=== PATIENT | female | born 1950 | race Caucasian/White ===

== ENCOUNTER 2021-03-10 15:39 | Inpatient (IN) | payer MEDICARE ==
[~2021-03-10] VITALS: Ht 162.6 cm; Wt 62.9 kg
[~2021-03-10 15:39] MED LIST: AREDS EYE PO; ASPI-556 PO; CALC-1125 PO; CHOL200013 PO; CYAN1TAB44 PO; FOLI5VIA2 PO; GLUC100019 PO; IBAN150T16 PO; IRON18TA PO; L.AC1CAP6 PO; OMEG1CAP6 PO; OMEP10CA2 PO; POTA99TA4 PO; PRAS25CA3 PO; PREG25PO MC; PREM125 PO; PROG200C11 PO; TEST75GE5; THYR15TA PO; VITA-164 PO
[2021-03-10 15:43] VITALS: BP 125/50
[2021-03-10] MEDS ORDERED: THYR15TA PO (16:33)
[2021-03-10] MEDS ORDERED: CARV12.580 PO (16:34)
[2021-03-10] MEDS ORDERED: FURO-151 PO (16:34)
[2021-03-10] MEDS ORDERED: ASPI-1197 PO (16:38)
[2021-03-10] MEDS ORDERED: ARGATROBAN 250 MG/2.5 ML VIAL 250 MG in 0.9% NACL 250ML 250 ML IV SCH (16:56)
[2021-03-10] MEDS ORDERED: ONDANSETRON 4MG INJ IVP ONE (17:00)
[2021-03-10] MEDS ORDERED: MORPHINE 4 MG SYG IV ONE (17:00)
[2021-03-10] MEDS ORDERED: DABIGATRAN 150MG CAPSULE PO SCH (17:00)
[2021-03-10] MEDS ORDERED: TRAMADOL HCL 50 MG TABLET PO PRN (17:30)
[2021-03-10 17:36] LABS: HEMATOCRIT 34.7 % (36-48); MEAN CORPUSCULAR HEMOGLOBIN 32.8 pg (27.0-33.0); MEAN CORPUSCULAR HGB CONC 32.6 g/dL (32.0-36.0); MEAN CORPUSCULAR VOLUME 100.6 fL (79-99); PLATELET COUNT (AUTO) 297 K/uL (130-400); RED BLOOD CELL COUNT(AUTO) 3.45 MIL/uL (4.00-5.50); RED CELL DISTRIBUTION WIDTH 17.2 % (11.0-15.5); WHITE BLOOD COUNT (AUTO) 16.3 K/uL (4.8-10.8)
[2021-03-10 17:49] LABS: INR 1.27 (0.85-1.15); PROTHROMBIN TIME 13.5 SEC (9.6-11.6)
[2021-03-10 17:50] LABS: PARTIAL THROMBOPLASTIN TIME 27.5 SEC (26.3-35.5)
[2021-03-10 17:51] VITALS: BP 120/70
[2021-03-10 17:55] LABS: POTASSIUM 3.5 mmol/L (3.5-5.1)
[2021-03-10 18:00] LABS: ALBUMIN 2.9 g/dL (3.5-5.0); BILIRUBIN,TOTAL 0.8 mg/dL (0.2-1.0); TOTAL PROTEIN, SERUM 6.6 g/dL (6.0-8.3)
[2021-03-10] MEDS ORDERED: KCL 20 MEQ ERTAB PO ONE (18:00)
[2021-03-10] MEDS ORDERED: FUROSEMIDE 40MG VIAL IV ONE (18:00)
[2021-03-10 18:06] LABS: BAND NEUTROPHILS % (MANUAL) 1 % (0-2); BASOPHILS % (MANUAL) 1 % (0-2); EOSINOPHILS % (MANUAL) 1 % (1-6); LYMPHOCYTES % (MANUAL) 13 % (22-44); MAN.DIFF COMMENT-IMPRESSION MANUAL DIFFERENTIAL; MONOCYTES % (MANUAL) 10 % (2-9); REACTIVE LYMPHOCYTES 2 % (0-0); SEGMENTED NEUTROPHILS % 72 % (40-70)
[2021-03-10 18:07] LABS: PLATELET MORPHOLOGY COMMENT ADEQUATE
[2021-03-10 19:49] VITALS: BP 118/81
[2021-03-10 20:20] VITALS: BP 136/79
[2021-03-10] MEDS ORDERED: ATORVASTATIN 40 MG TABLET PO SCH (21:00)
[2021-03-10] MEDS: METOPROLOL TARTRATE 25 MG TAB PO SCH (22:26)
[2021-03-10] MEDS: ASPIRIN 81 MG EC TAB PO SCH (22:26)
[2021-03-10] MEDS: GABAPENTIN 100 MG CAPSULE PO SCH (22:26)
[2021-03-10] MEDS: FUROSEMIDE 20 MG TABLET PO SCH (22:27)
[2021-03-10] MEDS: TRAMADOL HCL 50 MG TABLET PO PRN (22:30)
[2021-03-10 23:59] VITALS: BP 123/75
[2021-03-11 03:04] LABS: CREATININE 0.8 mg/dL (0.5-1.5); POTASSIUM 3.4 mmol/L (3.5-5.1)
[2021-03-11 03:16] LABS: BASOPHILS % (AUTO) 0.5 % (0.0-5.0); EOSINOPHILS % (AUTO) 2.1 % (0.0-8.0); HEMATOCRIT 30.7 % (36-48); LYMPHOCYTES % (AUTO) 14.6 % (21.0-51.0); MEAN CORPUSCULAR HEMOGLOBIN 32.8 pg (27.0-33.0); MEAN CORPUSCULAR HGB CONC 32.9 g/dL (32.0-36.0); MEAN CORPUSCULAR VOLUME 99.7 fL (79-99); MONOCYTES % (AUTO) 9.3 % (3.0-13.0); NEUTROPHILS % (AUTO) 72.3 % (40.0-77.0); PLATELET COUNT (AUTO) 296 K/uL (130-400); RED BLOOD CELL COUNT(AUTO) 3.08 MIL/uL (4.00-5.50); RED CELL DISTRIBUTION WIDTH 17.2 % (11.0-15.5); WHITE BLOOD COUNT (AUTO) 13.7 K/uL (4.8-10.8)
[2021-03-11 04:00] VITALS: BP 117/72
[2021-03-11 04:29] LABS: INR 1.26 (0.85-1.15); PROTHROMBIN TIME 13.4 SEC (9.6-11.6)
[2021-03-11 04:30] LABS: PARTIAL THROMBOPLASTIN TIME 29.7 SEC (26.3-35.5)
[2021-03-11] MEDS ORDERED: DABIGATRAN 150MG CAPSULE PO SCH ×2 (05:00→09:00)
[2021-03-11 07:43] LABS: HEMATOCRIT 31.3 % (36-48); MEAN CORPUSCULAR HEMOGLOBIN 31.6 pg (27.0-33.0); MEAN CORPUSCULAR HGB CONC 31.9 g/dL (32.0-36.0); MEAN CORPUSCULAR VOLUME 99.1 fL (79-99); RED BLOOD CELL COUNT(AUTO) 3.16 MIL/uL (4.00-5.50); RED CELL DISTRIBUTION WIDTH 17.2 % (11.0-15.5); WHITE BLOOD COUNT (AUTO) 12.7 K/uL (4.8-10.8)
[2021-03-11 08:00] VITALS: BP 120/71
[2021-03-11] MEDS ORDERED: ASPIRIN 81 MG EC TAB PO SCH (09:00)
[2021-03-11] MEDS: THYROID 15 MG PO SCH (09:00)
[2021-03-11] MEDS: ASPIRIN 81 MG EC TAB PO SCH (09:05)
[2021-03-11] MEDS: FUROSEMIDE 20 MG TABLET PO SCH ×2 (09:05→20:35)
[2021-03-11] MEDS: GABAPENTIN 100 MG CAPSULE PO SCH ×3 (09:05→20:35)
[2021-03-11] MEDS: METOPROLOL TARTRATE 25 MG TAB PO SCH ×2 (09:05→20:35)
[2021-03-11] MEDS: EZETIMIBE 10 MG TAB PO SCH (09:05)
[2021-03-11] MEDS: TRAMADOL HCL 50 MG TABLET PO PRN ×2 (09:06→20:42)
[2021-03-11 12:00] VITALS: BP 109/62
[2021-03-11 15:06] LABS: HEMATOCRIT 31.9 % (36-48); MEAN CORPUSCULAR HEMOGLOBIN 31.7 pg (27.0-33.0); MEAN CORPUSCULAR HGB CONC 31.3 g/dL (32.0-36.0); MEAN CORPUSCULAR VOLUME 101.3 fL (79-99); RED BLOOD CELL COUNT(AUTO) 3.15 MIL/uL (4.00-5.50); RED CELL DISTRIBUTION WIDTH 17.2 % (11.0-15.5); WHITE BLOOD COUNT (AUTO) 12.4 K/uL (4.8-10.8)
[2021-03-11 16:00] VITALS: BP 113/69
[2021-03-11 20:00] VITALS: BP 116/63
[2021-03-11] MEDS: KCL 20 MEQ ERTAB PO PRN (20:40)
[2021-03-11] MEDS: DABIGATRAN 150MG CAPSULE PO SCH (21:30)
[2021-03-11] MEDS: FOLIC ACID 1 MG TABLET PO SCH (21:30)
[2021-03-11] MEDS: CYANOCOBALAMIN (VITAMIN B-12) 1,000 MCG TABLET PO SCH (21:31)
[2021-03-11 23:14] LABS: MEAN CORPUSCULAR HEMOGLOBIN 32.1 pg (27.0-33.0); MEAN CORPUSCULAR HGB CONC 31.9 g/dL (32.0-36.0); MEAN CORPUSCULAR VOLUME 100.6 fL (79-99); RED BLOOD CELL COUNT(AUTO) 3.18 MIL/uL (4.00-5.50); RED CELL DISTRIBUTION WIDTH 16.8 % (11.0-15.5); WHITE BLOOD COUNT (AUTO) 14.2 K/uL (4.8-10.8)
[2021-03-11 23:36] VITALS: BP 120/72
[2021-03-12 03:39] VITALS: BP 113/63
[2021-03-12 07:26] LABS: HEMATOCRIT 33.6 % (36-48); MEAN CORPUSCULAR HGB CONC 31.3 g/dL (32.0-36.0); MEAN CORPUSCULAR VOLUME 102.4 fL (79-99); RED BLOOD CELL COUNT(AUTO) 3.28 MIL/uL (4.00-5.50); RED CELL DISTRIBUTION WIDTH 16.7 % (11.0-15.5)
[2021-03-12 07:44] LABS: ALBUMIN 2.6 g/dL (3.5-5.0); BILIRUBIN,TOTAL 0.8 mg/dL (0.2-1.0); CREATININE 0.8 mg/dL (0.5-1.5); POTASSIUM 3.9 mmol/L (3.5-5.1); TOTAL PROTEIN, SERUM 5.7 g/dL (6.0-8.3)
[2021-03-12 08:00] VITALS: BP 128/72
[2021-03-12] MEDS: METOPROLOL TARTRATE 25 MG TAB PO SCH ×3 (08:07→19:48)
[2021-03-12] MEDS: DABIGATRAN 150MG CAPSULE PO SCH ×2 (09:05→19:52)
[2021-03-12] MEDS: FUROSEMIDE 20 MG TABLET PO SCH ×2 (09:07→19:49)
[2021-03-12] MEDS: FOLIC ACID 1 MG TABLET PO SCH (09:07)
[2021-03-12] MEDS: ASPIRIN 81 MG EC TAB PO SCH (09:07)
[2021-03-12] MEDS: EZETIMIBE 10 MG TAB PO SCH (09:07)
[2021-03-12] MEDS: CYANOCOBALAMIN (VITAMIN B-12) 1,000 MCG TABLET PO SCH (09:08)
[2021-03-12] MEDS: GABAPENTIN 100 MG CAPSULE PO SCH ×3 (09:08→19:52)
[2021-03-12] MEDS: THYROID 15 MG PO SCH (09:18)
[2021-03-12 12:00] VITALS: BP 122/66
[2021-03-12 13:31] LABS: ABG BASE EXCESS 4.1 mmol/L (-2.0-3.0); ABG HCO3 28.3 mmol/L (21.0-28.0); ABG OXYGEN SATURATION 95.3 % (95.0-99.0); ABG PCO2 41 mmHg (32-45)
[2021-03-12 13:43] LABS: HEMATOCRIT 32.5 % (36-48); MEAN CORPUSCULAR HGB CONC 31.7 g/dL (32.0-36.0); MEAN CORPUSCULAR VOLUME 104.2 fL (79-99); RED BLOOD CELL COUNT(AUTO) 3.12 MIL/uL (4.00-5.50); RED CELL DISTRIBUTION WIDTH 16.8 % (11.0-15.5); WHITE BLOOD COUNT (AUTO) 13.8 K/uL (4.8-10.8)
[2021-03-12 13:50] LABS: ABG BASE EXCESS 4.3 mmol/L (-2.0-3.0); ABG HCO3 28.9 mmol/L (21.0-28.0); ABG OXYGEN SATURATION 30.3 % (95.0-99.0); ABG PCO2 44 mmHg (32-45)
[2021-03-12] MEDS: FUROSEMIDE 20MG VIAL IV SCH (13:56)
[2021-03-12 14:26] LABS: CRP QUANTITATIVE 35.2 mg/L (0.00-9.0); THYROID STIMULATING HORMONE 13.05 uIU/mL (0.36-3.74)
[2021-03-12 16:00] VITALS: BP 133/55
[2021-03-12] MEDS ORDERED: DABIGATRAN 150MG CAPSULE PO SCH (18:00)
[2021-03-12 20:00] VITALS: BP 102/57
[2021-03-12 22:45] LABS: HEMATOCRIT 32.5 % (36-48); MEAN CORPUSCULAR HEMOGLOBIN 32.1 pg (27.0-33.0); MEAN CORPUSCULAR HGB CONC 31.7 g/dL (32.0-36.0); MEAN CORPUSCULAR VOLUME 101.2 fL (79-99); RED BLOOD CELL COUNT(AUTO) 3.21 MIL/uL (4.00-5.50); RED CELL DISTRIBUTION WIDTH 16.6 % (11.0-15.5); WHITE BLOOD COUNT (AUTO) 13.8 K/uL (4.8-10.8)
[2021-03-12] MEDS: TRAMADOL HCL 50 MG TABLET PO PRN (22:45)
[2021-03-13] VITALS: BP 113/61
[2021-03-13] MEDS ORDERED: FUROSEMIDE 20MG VIAL IV ONE
[2021-03-13 04:00] VITALS: BP 107/57
[2021-03-13 04:15] LABS: CREATININE 0.7 mg/dL (0.5-1.5); MAGNESIUM 1.1 mg/dL (1.80-2.40); PHOSPHORUS 4.5 mg/dL (2.5-4.9); POTASSIUM 3.4 mmol/L (3.5-5.1)
[2021-03-13 08:00] VITALS: BP 119/76
[2021-03-13] MEDS: FOLIC ACID 1 MG TABLET PO SCH (09:27)
[2021-03-13] MEDS: CYANOCOBALAMIN (VITAMIN B-12) 1,000 MCG TABLET PO SCH (09:28)
[2021-03-13] MEDS: FUROSEMIDE 20 MG TABLET PO SCH (09:28)
[2021-03-13] MEDS: GABAPENTIN 100 MG CAPSULE PO SCH ×2 (09:28→13:33)
[2021-03-13] MEDS: EZETIMIBE 10 MG TAB PO SCH (09:28)
[2021-03-13] MEDS: ASPIRIN 81 MG EC TAB PO SCH (09:28)
[2021-03-13] MEDS: DABIGATRAN 150MG CAPSULE PO SCH (09:29)
[2021-03-13] MEDS: METOPROLOL TARTRATE 25 MG TAB PO SCH (09:30)
[2021-03-13] MEDS: FUROSEMIDE 20MG VIAL IV SCH (09:33)
[2021-03-13] MEDS: THYROID 15 MG PO SCH (09:36)
[2021-03-13 12:00] VITALS: BP 114/71
[2021-03-13] MEDS ORDERED: DABI150C PO (13:45)
[2021-03-13 15:13] LABS: ALPHA-1-ANTITRYPSIN 260 mg/dL (101-187)
[2021-03-13] MEDS: KCL 20 MEQ ERTAB PO PRN ×2 (15:36→15:37)
[2021-03-13] MEDS ORDERED: GABA100C PO (15:53)
[2021-03-19 11:12] LABS: SRA HIGH DOSE HEPARIN <1 % (0-20); SRA, LOW DOSE HEPARIN 2 % (0-20)
== END 2021-03-13 17:58 | disposition home or self-care (01) | DRG 300 ==
LOC: EDH 15:39 → EDHIP 15:40 → 4BH 20:30
PROVIDERS: ADMIT Internal Medicine Pulmonary Disease; ATTEND Internal Medicine Pulmonary Disease
DX: I75.021 Atheroembolism of right lower extremity (principal); J90 Pleural effusion, not elsewhere classified; D68.59 Other primary thrombophilia; N17.9 Acute kidney failure, unspecified; D64.9 Anemia, unspecified; Z20.822 Contact with and (suspected) exposure to COVID-19; I25.10 Atherosclerotic heart disease of native coronary artery without angina pectoris; I10 Essential (primary) hypertension; E03.9 Hypothyroidism, unspecified; D72.829 Elevated white blood cell count, unspecified; L97.519 Non-pressure chronic ulcer of other part of right foot with unspecified severity; E78.00 Pure hypercholesterolemia, unspecified; I73.9 Peripheral vascular disease, unspecified; I89.0 Lymphedema, not elsewhere classified; I25.82 Chronic total occlusion of coronary artery; Z95.1 Presence of aortocoronary bypass graft; Z85.3 Personal history of malignant neoplasm of breast; Z90.13 Acquired absence of bilateral breasts and nipples; Z79.82 Long term (current) use of aspirin; Z79.01 Long term (current) use of anticoagulants; Z79.899 Other long term (current) drug therapy; Z88.8 Allergy status to other drugs, medicaments and biological substances; Z82.5 Family history of asthma and other chronic lower respiratory diseases; Z80.8 Family history of malignant neoplasm of other organs or systems; Z82.49 Family history of ischemic heart disease and other diseases of the circulatory system
CPT/HCPCS: 36415; 36600; 71045; 71250; 76775; 80048; 80053; 82103; 82803; 83735; 83874; 84100; 84145; 84443; 85025; 85027; 85610; 85651; 85730; 86022; 86038; 86140; 86215; 86235; 86255; 86431; 87635; 93306; 93356; 93925; 93970; 93971; G0378; J0883; J1940; J2270; J2405; J7050

== ENCOUNTER → 2021-03-28 | Outpatient (CLI) | payer MEDICARE ==
[~2021-03-28] MED LIST changes: +ASPI-1197 PO; -ASPI-556 PO; +CARV12.580 PO; +DABI150C PO; +FURO-151 PO; +GABA100C PO; +HONEY 1 APPL/ML TUBE TP ONE; +LIDOCAINE HCL 4% LTA SOL 4 ML VIAL TP ONE
== END | disposition home or self-care (01) ==
LOC: WHH 08:58
PROVIDERS: ATTEND Family Medicine
DX: T81.89XA Other complications of procedures, not elsewhere classified, initial encounter (principal); S51.802A Unspecified open wound of left forearm, initial encounter; I10 Essential (primary) hypertension; I25.10 Atherosclerotic heart disease of native coronary artery without angina pectoris; E78.5 Hyperlipidemia, unspecified; E03.9 Hypothyroidism, unspecified; Z85.3 Personal history of malignant neoplasm of breast; Z98.890 Other specified postprocedural states; Z90.10 Acquired absence of unspecified breast and nipple; Z79.01 Long term (current) use of anticoagulants; Z79.899 Other long term (current) drug therapy; X58.XXXA Exposure to other specified factors, initial encounter; Y93.89 Activity, other specified; Y83.8 Other surgical procedures as the cause of abnormal reaction of the patient, or of later complication, without mention of misadventure at the time of the procedure; Y92.238 Other place in hospital as the place of occurrence of the external cause
CPT/HCPCS: 11042; A4450

== ENCOUNTER → 2021-04-11 | Outpatient (CLI) | payer MEDICARE ==
[~2021-04-11] MED LIST changes: -HONEY 1 APPL/ML TUBE TP ONE; -LIDOCAINE HCL 4% LTA SOL 4 ML VIAL TP ONE
== END | disposition home or self-care (01) ==
LOC: WHH 09:54
PROVIDERS: ATTEND Family Medicine
DX: T81.89XD Other complications of procedures, not elsewhere classified, subsequent encounter (principal); S51.802D Unspecified open wound of left forearm, subsequent encounter; I10 Essential (primary) hypertension; I25.10 Atherosclerotic heart disease of native coronary artery without angina pectoris; E78.5 Hyperlipidemia, unspecified; E03.9 Hypothyroidism, unspecified; E78.00 Pure hypercholesterolemia, unspecified; I89.0 Lymphedema, not elsewhere classified; Z79.82 Long term (current) use of aspirin; Z88.8 Allergy status to other drugs, medicaments and biological substances; Z85.3 Personal history of malignant neoplasm of breast; Z98.890 Other specified postprocedural states; Z90.10 Acquired absence of unspecified breast and nipple; Z79.01 Long term (current) use of anticoagulants; Z79.899 Other long term (current) drug therapy; X58.XXXD Exposure to other specified factors, subsequent encounter; Y83.8 Other surgical procedures as the cause of abnormal reaction of the patient, or of later complication, without mention of misadventure at the time of the procedure
CPT/HCPCS: G0463

== ENCOUNTER → 2022-10-21 | Outpatient (CLI) | payer MEDICARE ==
[~2022-10-21] MED LIST changes: -VITA-164 PO; +VITA-348 PO
== END | disposition home or self-care (01) ==
LOC: WHH 10:54
PROVIDERS: ATTEND Nurse Practitioner Family
DX: T81.89XA Other complications of procedures, not elsewhere classified, initial encounter (principal); S81.801A Unspecified open wound, right lower leg, initial encounter; S51.802A Unspecified open wound of left forearm, initial encounter; D03.71 Melanoma in situ of right lower limb, including hip; I25.10 Atherosclerotic heart disease of native coronary artery without angina pectoris; I10 Essential (primary) hypertension; E03.9 Hypothyroidism, unspecified; E78.00 Pure hypercholesterolemia, unspecified; Z85.3 Personal history of malignant neoplasm of breast; Z95.1 Presence of aortocoronary bypass graft; Z90.13 Acquired absence of bilateral breasts and nipples; Y83.8 Other surgical procedures as the cause of abnormal reaction of the patient, or of later complication, without mention of misadventure at the time of the procedure; X58.XXXA Exposure to other specified factors, initial encounter; Y93.89 Activity, other specified; Y92.238 Other place in hospital as the place of occurrence of the external cause; Y99.8 Other external cause status
CPT/HCPCS: 11042; 87070; A6248; A6209; A4450

== ENCOUNTER → 2022-11-04 | Outpatient (CLI) | payer MEDICARE ==
[~2022-11-04] MED LIST changes: +LIDOCAINE HCL 4% LTA SOL 4 ML VIAL TP ONE
== END | disposition home or self-care (01) ==
LOC: WHH 10:52
PROVIDERS: ATTEND Nurse Practitioner Family
DX: T81.89XD Other complications of procedures, not elsewhere classified, subsequent encounter (principal); S81.801D Unspecified open wound, right lower leg, subsequent encounter; S51.802D Unspecified open wound of left forearm, subsequent encounter; D03.71 Melanoma in situ of right lower limb, including hip; I25.10 Atherosclerotic heart disease of native coronary artery without angina pectoris; I10 Essential (primary) hypertension; E03.9 Hypothyroidism, unspecified; E78.00 Pure hypercholesterolemia, unspecified; Z85.3 Personal history of malignant neoplasm of breast; Z95.1 Presence of aortocoronary bypass graft; Z90.13 Acquired absence of bilateral breasts and nipples; Y83.8 Other surgical procedures as the cause of abnormal reaction of the patient, or of later complication, without mention of misadventure at the time of the procedure; X58.XXXD Exposure to other specified factors, subsequent encounter
CPT/HCPCS: 11042; A6212; A6022

== ENCOUNTER → 2022-11-11 | Outpatient (CLI) | payer MEDICARE ==
[~2022-11-11] MED LIST changes: -LIDOCAINE HCL 4% LTA SOL 4 ML VIAL TP ONE
== END | disposition home or self-care (01) ==
LOC: WHH 10:50
PROVIDERS: ATTEND Nurse Practitioner Family
DX: T81.89XD Other complications of procedures, not elsewhere classified, subsequent encounter (principal); S81.801D Unspecified open wound, right lower leg, subsequent encounter; S51.802D Unspecified open wound of left forearm, subsequent encounter; D03.71 Melanoma in situ of right lower limb, including hip; I25.10 Atherosclerotic heart disease of native coronary artery without angina pectoris; I10 Essential (primary) hypertension; E03.9 Hypothyroidism, unspecified; E78.00 Pure hypercholesterolemia, unspecified; Z85.3 Personal history of malignant neoplasm of breast; Z95.1 Presence of aortocoronary bypass graft; Z90.13 Acquired absence of bilateral breasts and nipples; Y83.8 Other surgical procedures as the cause of abnormal reaction of the patient, or of later complication, without mention of misadventure at the time of the procedure; X58.XXXD Exposure to other specified factors, subsequent encounter
CPT/HCPCS: 11042; A6212; A6022

== ENCOUNTER → 2022-11-18 | Outpatient (CLI) | payer MEDICARE ==
[~2022-11-18] MED LIST changes: +LIDOCAINE HCL 4% LTA SOL 4 ML VIAL TP ONE
== END | disposition home or self-care (01) ==
LOC: WHH 10:54
PROVIDERS: ATTEND Nurse Practitioner Family
DX: T81.89XD Other complications of procedures, not elsewhere classified, subsequent encounter (principal); S81.801D Unspecified open wound, right lower leg, subsequent encounter; S51.802D Unspecified open wound of left forearm, subsequent encounter; D03.71 Melanoma in situ of right lower limb, including hip; I25.10 Atherosclerotic heart disease of native coronary artery without angina pectoris; I10 Essential (primary) hypertension; E03.9 Hypothyroidism, unspecified; E78.00 Pure hypercholesterolemia, unspecified; Z85.3 Personal history of malignant neoplasm of breast; Z95.1 Presence of aortocoronary bypass graft; Z90.13 Acquired absence of bilateral breasts and nipples; Y83.8 Other surgical procedures as the cause of abnormal reaction of the patient, or of later complication, without mention of misadventure at the time of the procedure; X58.XXXD Exposure to other specified factors, subsequent encounter
CPT/HCPCS: G0463; A6212

== ENCOUNTER 2022-11-27 10:51 | Outpatient (CLI) | payer MEDICARE ==
[~2022-11-27 10:51] MED LIST changes: -LIDOCAINE HCL 4% LTA SOL 4 ML VIAL TP ONE
== END 2022-11-27 16:47 | disposition home or self-care (01) ==
LOC: WHH 10:51
PROVIDERS: ATTEND Nurse Practitioner Family
DX: T81.89XD Other complications of procedures, not elsewhere classified, subsequent encounter (principal); S81.801D Unspecified open wound, right lower leg, subsequent encounter; S51.802D Unspecified open wound of left forearm, subsequent encounter; D03.71 Melanoma in situ of right lower limb, including hip; I25.10 Atherosclerotic heart disease of native coronary artery without angina pectoris; I10 Essential (primary) hypertension; E03.9 Hypothyroidism, unspecified; E78.00 Pure hypercholesterolemia, unspecified; Z85.3 Personal history of malignant neoplasm of breast; Z95.1 Presence of aortocoronary bypass graft; Z90.13 Acquired absence of bilateral breasts and nipples; X58.XXXD Exposure to other specified factors, subsequent encounter; Y83.8 Other surgical procedures as the cause of abnormal reaction of the patient, or of later complication, without mention of misadventure at the time of the procedure
CPT/HCPCS: G0463

== ENCOUNTER → 2025-05-08 | Outpatient (CLI) | payer MEDICARE ==
[~2025-05-08] MED LIST changes: +PRAS25CA10 PO; -PRAS25CA3 PO
== END | disposition home or self-care (01) ==
LOC: WHH 11:07
PROVIDERS: ATTEND Family Medicine
DX: S90.424A Blister (nonthermal), right lesser toe(s), initial encounter (principal); S91.106A Unspecified open wound of unspecified lesser toe(s) without damage to nail, initial encounter; I10 Essential (primary) hypertension; E78.00 Pure hypercholesterolemia, unspecified; E03.9 Hypothyroidism, unspecified; I73.9 Peripheral vascular disease, unspecified; I25.10 Atherosclerotic heart disease of native coronary artery without angina pectoris; Z79.899 Other long term (current) drug therapy; Z85.3 Personal history of malignant neoplasm of breast; Z98.890 Other specified postprocedural states; Z95.5 Presence of coronary angioplasty implant and graft; X58.XXXA Exposure to other specified factors, initial encounter; Y93.89 Activity, other specified; Y92.89 Other specified places as the place of occurrence of the external cause; Y99.8 Other external cause status
CPT/HCPCS: 87070; G0463

== ENCOUNTER → 2025-05-16 | Outpatient (CLI) | payer MEDICARE | END | disposition home or self-care (01) | LOC: WHH 09:18 | PROVIDERS: ATTEND Family Medicine | DX: S90.424D Blister (nonthermal), right lesser toe(s), subsequent encounter (principal); S91.106D Unspecified open wound of unspecified lesser toe(s) without damage to nail, subsequent encounter; I10 Essential (primary) hypertension; E03.9 Hypothyroidism, unspecified; E78.00 Pure hypercholesterolemia, unspecified; I73.9 Peripheral vascular disease, unspecified; I25.10 Atherosclerotic heart disease of native coronary artery without angina pectoris; Z79.899 Other long term (current) drug therapy; Z95.5 Presence of coronary angioplasty implant and graft; Z98.890 Other specified postprocedural states; Z85.3 Personal history of malignant neoplasm of breast; X58.XXXD Exposure to other specified factors, subsequent encounter | CPT/HCPCS: G0463; A6209; A4450 ==

== ENCOUNTER → 2025-05-23 | Outpatient (CLI) | payer MEDICARE | END | disposition home or self-care (01) | LOC: WHH 09:07 | PROVIDERS: ATTEND Family Medicine | DX: S90.424D Blister (nonthermal), right lesser toe(s), subsequent encounter (principal); S91.106D Unspecified open wound of unspecified lesser toe(s) without damage to nail, subsequent encounter; I10 Essential (primary) hypertension; E03.9 Hypothyroidism, unspecified; E78.00 Pure hypercholesterolemia, unspecified; I73.9 Peripheral vascular disease, unspecified; I25.10 Atherosclerotic heart disease of native coronary artery without angina pectoris; Z79.899 Other long term (current) drug therapy; Z95.5 Presence of coronary angioplasty implant and graft; Z98.890 Other specified postprocedural states; Z85.3 Personal history of malignant neoplasm of breast; X58.XXXD Exposure to other specified factors, subsequent encounter | CPT/HCPCS: G0463; A6209; A4450 ==

== ENCOUNTER → 2025-05-30 | Outpatient (CLI) | payer MEDICARE | END | disposition home or self-care (01) | LOC: WHH 09:07 | PROVIDERS: ATTEND Family Medicine | DX: S90.424D Blister (nonthermal), right lesser toe(s), subsequent encounter (principal); S91.106D Unspecified open wound of unspecified lesser toe(s) without damage to nail, subsequent encounter; I10 Essential (primary) hypertension; E03.9 Hypothyroidism, unspecified; E78.00 Pure hypercholesterolemia, unspecified; I73.9 Peripheral vascular disease, unspecified; I25.10 Atherosclerotic heart disease of native coronary artery without angina pectoris; Z79.899 Other long term (current) drug therapy; Z95.5 Presence of coronary angioplasty implant and graft; Z98.890 Other specified postprocedural states; Z85.3 Personal history of malignant neoplasm of breast; X58.XXXD Exposure to other specified factors, subsequent encounter | CPT/HCPCS: G0463 ==